=== PATIENT | male | born 1970 | race Caucasian/White ===

== ENCOUNTER 2021-09-22 18:30 | Inpatient (IN) | payer OTHER, MEDICAID ==
[~2021-09-22] VITALS: Ht 180.3 cm; Wt 113.4 kg
[~2021-09-22 18:30] MED LIST: GLIP5TAB13 PO; HTN MED
[2021-09-22 18:41] VITALS: BP 190/80
--- NOTE | 2021-09-22 18:49 | NUR ---
BIBA FROM STREET D/T ETOH. NO TRAUMA OR INJURY NOTED. HX DM, HTN. ON JAVA CORE DEVELOPER. IV ESTABLISHED STEAM FLATTENER BY EMS WITH 20G ON LEFT AC.
--- NOTE | 2021-09-22 18:50 | NUR ---
CONTACT INFO FOR FAMILY "BIRANNE": [phone]
--- NOTE | 2021-09-22 19:53 | NUR ---
PATIENT RESTING IN BED. RR APPEAR TO BE EVEN AND UNLABORED. DOESNT APPEAR TO BE IN DISTRESS. ALL NEEDS MET.
--- NOTE | 2021-09-22 20:22 | NUR ---
SPOKE TO BRIANNE PATIENTS , UPDATED ON PATIENTS CONDITION.
--- NOTE | 2021-09-22 20:30 | NUR ---
50/M DIANDRA FROM HOME C/C ALOC. FAMILY CALLED AMBULANCED S/P FINDING PATIENT IN ROOM. PER PREVIOUS NURSE REPORT UPON ARRIVAL PATIENT WAS AAOX1 , HAD SLOW RESPONSES TO NAME. AFTER CALLING AND UPDATING HER ON PATIENT STATUS, SHE STATED THAT PATIENT HAS A HISTORY OF ALCOHOL ABUSE AND SUSPECTED THAT HE STARTED USING AGAIN. FOUND ALCOHOL CANS IN ROOM. PER PATIENT IS CURRENTLY ON A TRANSPLANT LIST TO RECEIVE A LIVER. PATIENT IS LYING ON HIS RIGHT SIDE AND COVERED IN A BED SHEET. RR ARE EVEN AND UNLABORED. DOES NOT APPEAR TO BE IN DISTRESS. PLACED ON AUDIOMETRIC TECHNICIAN. BED IS LOW AND LOCKED. SIDE RAILS X2 FOR SAFETY. ALL NEEDS MET. PMHX HTN, DM, ETOH ABUSE, AND STROKE 2020 MEDS UNOBTAINABLE PER PATIENT, STATED HE IS NONCOMPLIANT. DI
--- NOTE | 2021-09-22 20:45 | NUR ---
PATIENT IS CURRENTLY AAOX3. PATIENT RQ MORE BLANKETS
[2021-09-22] MEDS ORDERED: NACL 0.9% 1,000 ML IV ONE ×2 (21:15→23:20)
--- NOTE | 2021-09-22 21:43 | NUR ---
PROVIDE PATIENT WITH URINAL. IS ATTEMPTING TO URINATE AT THIS TIME.
--- NOTE | 2021-09-22 21:49 | NUR ---
UNABLE TO PROVIDE URINE , WILL ATTEMPT TO GO LATER
--- NOTE | 2021-09-22 21:49 | NUR ---
LAB AT BEDSIDE
[2021-09-22 22:01] LABS: BASOPHILS # (AUTO) 0.1 K/uL (0.00-0.22); BASOPHILS % (AUTO) 2.1 % (0.0-2.0); EOSINOPHILS # (AUTO) 0.1 K/uL (0-0.4); HEMATOCRIT 32.9 % (36-52); HEMOGLOBIN 11.3 g/dL (12.0-18.0); LYMPHOCYTES # (AUTO) 0.6 K/uL (2.0-11.5); MEAN CORPUSCULAR HEMOGLOBIN 29 pg (27-31); MEAN CORPUSCULAR HGB CONC 34 g/dL (33-37); MONOCYTES # (AUTO) 0.2 K/uL (0.8-1.0); MONOCYTES % (AUTO) 3.3 % (1.7-9.3); NEUTROPHILS # (AUTO) 5.5 K/uL (1.8-7.7); NEUTROPHILS % (AUTO) 84.6 % (42.2-75.2); PLATELET COUNT (AUTO) 35 K/uL (140-450); RED BLOOD CELL COUNT(AUTO) 3.83 MIL/uL (4.20-6.10); WHITE BLOOD COUNT (AUTO) 6.5 K/uL (4.8-10.8)
--- NOTE | 2021-09-22 22:15 | NUR ---
[facility]
--- NOTE | 2021-09-22 22:30 | NUR ---
MD AWARE THAT PATIENT IS UNABLE TO URINATE AT THIS TIME. STATED THAT IT IS OKAY AT THIS TIME DUE TO THE BLOOD SHOWING ELEVATED ALCOHOL LEVELS. PATIENT STATED HE CANT GO AT THIS TIME. REFUSES TO BE STRAIGHT CATH. WILL ATTEMPT TO GO LATER. URINAL AT BEDSIDE
[2021-09-22 23:11] LABS: ANION GAP 18.4 (8-16); CARBON DIOXIDE 23.2 mmol/L (21-32); CHLORIDE 104 mmol/L (98-107); CREATININE 2.5 mg/dL (0.6-1.3); GFR ARICAN-AMERICAN 35 mL/min (>90); GLUCOSE 116 mg/dL (74-106); POTASSIUM 3.6 mmol/L (3.5-5.1); SODIUM SERUM 142 mmol/L (136-145); UREA NITROGEN, BLOOD 14 mg/dL (7-18)
[2021-09-22 23:20] LABS: ALBUMIN 3.5 g/dL (3.4-5.0); SALICYLATE < 2.8 mg/dL (2.8-20.0); TOTAL BILIRUBIN 2.9 mg/dL (0.0-1.0)
[2021-09-22] MEDS ORDERED: NACL 0.9% 3,000 ML IV ONE (23:20)
[2021-09-22 23:21] LABS: ACETAMINOPHEN < 0.5 ug/ml (10-30)
[2021-09-22 23:31] LABS: ASPARTATE AMINOTRANSFERASE 57 U/L (15-37)
[2021-09-22 23:55] LABS: CKMB RELATIVE INDEX 1.2 (0.0-2.5)
--- NOTE | 2021-09-23 00:40 | NUR ---
PATIENT STATED "I'M FEELING VERY ANXIOUS AND CANT STOP SHAKING". MD MADE AWARE.
[2021-09-23] MEDS ORDERED: HYDROcodone/APAP 5/325 MG 1 TAB TAB PO PRN (00:50)
[2021-09-23] MEDS ORDERED: NACL 0.9% 1,000 ML IV SCH (00:50)
[2021-09-23] MEDS ORDERED: MORPHINE SULFATE 4 MG/ML SYR IVP PRN (00:50)
[2021-09-23] MEDS ORDERED: LACTULOSE 20 GM/30 ML UDC PO ONE (02:20)
--- NOTE | 2021-09-23 02:30 | NUR ---
PATIENT TACHYCARDIC 160-200. AWARE
--- NOTE | 2021-09-23 02:44 | NUR ---
MD DEAL ORDERED STAT EKG ON PATIENT. STAT EKG SHOWED A FIB @200BPM , CARE OF PATIENT TRANSFERED TO KATHI EMMANUEL.
--- NOTE | 2021-09-23 02:45 | NUR ---
ASSUMED CARE FOR PATIENT. PATIENT TACHYCARDIC AT 160s, tremors, and has anxiety. CIWA level score of 23. ER MD aware and have orders received.
[2021-09-23] MEDS ORDERED: DILTIAZEM 125 MG in DEXTROSE 5% 100 ML IV ONE (02:50)
[2021-09-23] MEDS ORDERED: DILTIAZEM 25 MG/5 ML VIAL IVP ONE (02:50)
[2021-09-23] MEDS ORDERED: DIAZEPAM PFS 10 MG/2 ML SYR IVP ONE (02:50)
[2021-09-23 02:58] LABS: PROTHROMBIN TIME 12.5 secs (10.8-13.4)
[2021-09-23] MEDS ORDERED: DILTIAZEM 125 MG/25 ML VIAL IV ONE ×2 (03:16→03:17)
[2021-09-23 03:33] LABS: MAGNESIUM 1.8 mg/dL (1.8-2.4)
[2021-09-23 03:34] LABS: THYROID STIMULATING HORMONE 0.35 uIU/mL (0.34-3.74)
--- NOTE | 2021-09-23 04:31 | NUR ---
CONTACTED ADMISSION DOCTOR-- AWAITING FOR ANSWER AT THIS TIME.
--- NOTE | 2021-09-23 05:13 | NUR ---
PREVIOUS MAINFRAME APPLICATIONS DEVELOPER CONTACTED ADMITTING DOCTOR AT 03:19 NO ANSWER AT THIS TIME.
[2021-09-23] MEDS ORDERED: LORazepam 2 MG/ML VIAL IVP PRN (06:00)
--- NOTE | 2021-09-23 07:24 | NUR ---
Pt report given to Anirudh ARMENTA. Transfer of care at this time.
[2021-09-23] MEDS ORDERED: DOCUSATE SODIUM 100 MG GELCAP PO PRN (08:05)
[2021-09-23] MEDS ORDERED: guaiFENesin DM 200/20 MG-10 ML 10 ML UDC PO PRN (08:05)
[2021-09-23] MEDS ORDERED: MORPHINE SULFATE 2 MG/ML SYR IVP PRN (08:05)
[2021-09-23] MEDS ORDERED: DEXTROSE 50% 50 ML SYR IVP PRN (08:05)
[2021-09-23] MEDS ORDERED: ZOLPIDEM 5 MG TAB PO PRN (08:05)
[2021-09-23] MEDS ORDERED: POTASSIUM CHLORIDE 10 MEQ TABER PO PRN (08:05)
--- NOTE | 2021-09-23 08:26 | NUR ---
pt calm and resting. vss, on monitor, on cardizem drip, line patent and draining.
[2021-09-23] MEDS ORDERED: lisinopriL 5 MG TAB PO SCH (09:00)
[2021-09-23] MEDS ORDERED: ECOTRIN 81 MG TABEC PO SCH (09:00)
[2021-09-23] MEDS ORDERED: METOPROLOL 25 MG TAB PO SCH ×2 (09:00→11:24)
[2021-09-23] MEDS: FOLIC ACID 1 MG TAB PO SCH (09:42)
[2021-09-23] MEDS: THIAMINE 100 MG TAB PO SCH (09:43)
--- NOTE | 2021-09-23 10:14 | NUR ---
DR HILLS AT BEDSIDE. PER MD, DOWNGRADE PATIENT TO TELE AFTER CARDIZEM DRIP IS FINISHED.
[2021-09-23 10:44] LABS: BASOPHILS % (AUTO) 0.5 % (0.0-2.0); EOSINOPHILS # (AUTO) 0.1 K/uL (0-0.4); EOSINOPHILS % (AUTO) 0.9 % (0.0-4.0); HEMATOCRIT 32.1 % (36-52); LYMPHOCYTES # (AUTO) 0.6 K/uL (2.0-11.5); LYMPHOCYTES % (AUTO) 8.7 % (20.5-51.1); MEAN CORPUSCULAR HEMOGLOBIN 30 pg (27-31); MEAN CORPUSCULAR HGB CONC 34 g/dL (33-37); MEAN CORPUSCULAR VOLUME 86.6 fL (80-94); MONOCYTES # (AUTO) 0.3 K/uL (0.8-1.0); MONOCYTES % (AUTO) 4.5 % (1.7-9.3); NEUTROPHILS # (AUTO) 6.2 K/uL (1.8-7.7); NEUTROPHILS % (AUTO) 85.4 % (42.2-75.2); PLATELET COUNT (AUTO) 34 K/uL (140-450); RED BLOOD CELL COUNT(AUTO) 3.71 MIL/uL (4.20-6.10); RED CELL DISTRIBUTION WIDTH 17.3 % (11.6-13.7); WHITE BLOOD COUNT (AUTO) 7.3 K/uL (4.8-10.8)
[2021-09-23] MEDS: MULTIVITAMIN 1 TAB PO SCH (10:51)
[2021-09-23] MEDS ORDERED: METOPROLOL SUCCINATE 50 MG TABER PO ONE (11:15)
[2021-09-23] MEDS ORDERED: CRUSHER, PILL MC ONE (11:16)
--- NOTE | 2021-09-23 11:26 | NUR ---
PER DR CARROLL. PT CLEARED FOR DOWNGRADE TO TELE. RECEIVED VERBAL ORDER FOR METOPROLOL 12.5 MG PO PRIOR TO ADMISSION. US AT BEDSIDE.
--- NOTE | 2021-09-23 11:45 | NUR ---
Patient will be admitted to care of dr chaves. Admited to tele. Will go to room 111b. Belongings list completed. Report to adriana.
[2021-09-23] MEDS: BLOOD GLUCOSE MONITORING 1 DEV DEV FS SCH ×3 (12:05→21:43)
[2021-09-23 13:02] LABS: CARBON DIOXIDE 21.5 mmol/L (21-32); CREATININE 2.2 mg/dL (0.6-1.3); POTASSIUM 3.5 mmol/L (3.5-5.1)
[2021-09-23] MEDS: chlordiazePOXIDE 25 MG CAP PO SCH ×2 (13:09→21:43)
[2021-09-23 14:03] LABS: APPEARANCE,URINE SL CLOUDY (CLEAR); BILIRUBIN,URINE 1+ (NEGATIVE); BLOOD, URINE NEGATIVE (NEGATIVE); COLOR,URINE ORANGE (YELLOW); LEUKOCYTE ESTERASE ,URINE NEGATIVE (NEGATIVE); NITRITE, URINE NEGATIVE (NEGATIVE); UGLUCOSE NEGATIVE (NEGATIVE)
[2021-09-23 14:14] LABS: BARBITURATE, URINE NEGATIVE ng/ml (NEG <=200); BENZODIAZEPINE, URINE POSITIVE ng/mL (NEG <=200); CANNABINOID, URINE NEGATIVE ng/mL (NEG <=50); COCAINE, URINE NEGATIVE ng/mL (NEG <=300); OPIATE, URINE NEGATIVE ng/mL (NEG <=2000); PHENCYCLIDINE SCREEN,URINE NEGATIVE ng/mL (NEG <=25)
[2021-09-23 16:00] VITALS: BP 122/62
--- NOTE | 2021-09-23 16:30 | NUR ---
PATIENT HAS BEEN SCREENED AND CATEGORIZED MODERATE NUTRITION RISK. PATIENT WILL BE SEEN WITHIN 3-5 DAYS OF ADMISSION. / JAKE LORA RD
[2021-09-23] MEDS ORDERED: ATORVASTATIN 20 MG TAB PO SCH (17:00)
--- NOTE | 2021-09-23 18:39 | NUR ---
BEAUTY SCHOOL INSTRUCTOR WENT TO GIVE PT DINNER TRAY, PT WAS NOT RESPONDING, VITAL SIGNS CHECKED 171/70 HEART RATE 82, 96% IN RA, PT OPENED EYES WITH STERNAL RUB BUT WOULD NOT COMMUNICATE WITH US. BLOOD SUGAR 107. DR CARROLL AT BEDSIDE, WILL CONTINUE TO MONITOR.
--- NOTE | 2021-09-23 19:06 | NUR ---
REPORT ENDORSED TO KATHI DELGADO
--- NOTE | 2021-09-23 19:10 | NUR ---
RECEIVED REPORT FROM AM SHIFT NURSE FOR CONTINUITY OF CARE.PT AWAKE AND ORIENTED TO NAME AND PLACE. ON ROOM AIR, BREATHING EQUAL AND UNLABORED.IV ON LAC G20, L HAND G22, SL.DENIES PAIN. REPORTS WEAKNESS. ALL PRECAUTIONS IN PLACE. CALL LIGHT WITHIN REACH. WILL CONTINUE TO MONITOR.
[2021-09-23] MEDS ORDERED: ACETAMINOPHEN 325 MG TAB PO PRN (19:50)
[2021-09-23 20:00] VITALS: BP 117/58
--- NOTE | 2021-09-23 21:00 | NUR ---
SCHEDULED MEDICATIONS GIVEN.BLOOD SUGAR WAS 111, NO INULIN COVERAGE NEEDED. PT TOLERATED WELL. WILL CONTINUE TO MONITOR.
[2021-09-23] MEDS: METOPROLOL 25 MG TAB PO SCH (21:43)
--- NOTE | 2021-09-23 23:00 | NUR ---
PT ASKED FOR ICE CHIPS AND PUDDING. NO DISTRESS NOTED.WILL CONTINUE TO MONITOR.
[2021-09-24] VITALS: BP 138/69
--- NOTE | 2021-09-24 02:15 | NUR ---
PT CLEANED AND CHANGED. PT TOLERATED WELL. WILL CONTINUE TO MONITOR.
[2021-09-24 04:00] VITALS: BP 123/70
[2021-09-24] MEDS: chlordiazePOXIDE 25 MG CAP PO SCH ×3 (05:00→20:51)
--- NOTE | 2021-09-24 05:30 | NUR ---
SCHEDULED MEDICATIONS GIVEN. PT TOLERATED WELL. WILL CONTINUE TO MONITOR.
--- NOTE | 2021-09-24 06:30 | NUR ---
BLOOD SUGAR WAS 110, NO INULIN COVERAGE NEEDED.
[2021-09-24] MEDS: BLOOD GLUCOSE MONITORING 1 DEV DEV FS SCH ×4 (06:44→20:37)
[2021-09-24 06:52] LABS: BASOPHILS % (AUTO) 0.7 % (0.0-2.0); EOSINOPHILS # (AUTO) 0.2 K/uL (0-0.4); HEMATOCRIT 29.3 % (36-52); HEMOGLOBIN 10.1 g/dL (12.0-18.0); LYMPHOCYTES # (AUTO) 0.5 K/uL (2.0-11.5); LYMPHOCYTES % (AUTO) 10.3 % (20.5-51.1); MEAN CORPUSCULAR HEMOGLOBIN 29 pg (27-31); MEAN CORPUSCULAR HGB CONC 35 g/dL (33-37); MEAN CORPUSCULAR VOLUME 85.3 fL (80-94); MONOCYTES # (AUTO) 0.3 K/uL (0.8-1.0); MONOCYTES % (AUTO) 7.2 % (1.7-9.3); NEUTROPHILS # (AUTO) 3.6 K/uL (1.8-7.7); NEUTROPHILS % (AUTO) 76.8 % (42.2-75.2); PLATELET COUNT (AUTO) 25 K/uL (140-450); RED BLOOD CELL COUNT(AUTO) 3.44 MIL/uL (4.20-6.10); RED CELL DISTRIBUTION WIDTH 17.1 % (11.6-13.7); WHITE BLOOD COUNT (AUTO) 4.7 K/uL (4.8-10.8)
[2021-09-24 06:58] LABS: ANION GAP 12.5 (8-16); CARBON DIOXIDE 23.7 mmol/L (21-32); CREATININE 2.3 mg/dL (0.6-1.3); POTASSIUM 3.2 mmol/L (3.5-5.1)
--- NOTE | 2021-09-24 07:16 | NUR ---
PT IS STABLE. NO ACUTE EVENTS THROUGHOUT THE NIGHT. ALL NEEDS MET. ALL PRECAUTIONS IN PLACE. CALL LIGHT WITHIN REACH. WILL ENDORSE TO AM SHIFT NURSE.
--- NOTE | 2021-09-24 07:30 | NUR ---
RECEIVED REPORT FROM HOTEL RECEPTIONIST NURSE FOR CONTINUITY OF CARE. PT AWAKE AND ORIENTED TO NAME AND PLACE. ON ROOM AIR, BREATHING EQUAL AND UNLABORED. IV ON L HAND G22, SL. DENIES PAIN. REPORTS WEAKNESS. PLAN OF CARE DISCUSSED. ALL PRECAUTIONS IN PLACE. CALL LIGHT WITHIN REACH. WILL CONTINUE TO MONITOR.
[2021-09-24 08:00] VITALS: BP 136/67
--- NOTE | 2021-09-24 08:40 | NUR ---
DC PLANNING: THE PATIENT PRESENTED WITH C/O ALOC SECONDARY TO ETOH INTAKE. B/P 190/80, H/O DM AND HTN. TOX SCREEN POSITIVE FOR ETOH AND BENZODIAZEPINES, HR 120, ORDERS FOR CARDIOLOGY CONSULT. PATIENT STARTED ON LOPRESSOR, LIBRIUM AND IVF'S. CM SPOKE WITH THE PATIENT AT BEDSIDE AND CONFIRMED HIS ADDRESS AND PHONE NUMBER. HE LIVES IN A SINGLE STORY HOUSE WITH HIS AND TWO ADULT CHILDREN. HE IS ON DISABILITY SECONDARY TO A WORK ACCIDENT EIGHT YEARS AGO, AND IS NORMALLY INDEPENDENTLY ACTIVE AND DOES NOT NEED ASSISTANCE. HE HAS A H/O ETOH ABUSE SINCE THE AGE OF 16 BUT HAD BEEN SOBER FOR THE LAST 3-4 YEARS. HE STARTED DRINKING AGAIN DURING September WEEKEND, IS ALSO TAKING MANDATORY ALCOHOL CESSATION CLASSES SECONDARY TO A DRIVING VIOLATION. HE STATES HE HAS ATTENDED AA MEETINGS IN THE PAST BUT HAS NEVER HAD A SPONSOR. HE STATES HE IS MOTIVATED TO WORK ON HIS SOBRIETY AGAIN SECONDARY TO HIS 'S UNHAPPINESS AND HIS HOSPITALIZATION. ANTICIPATE THAT HE WILL DC HOME WHEN CLINICALLY STABLE, CM WILL FOLLOW FOR NEEDS.
[2021-09-24] MEDS: FOLIC ACID 1 MG TAB PO SCH (09:08)
[2021-09-24] MEDS: MULTIVITAMIN 1 TAB PO SCH (09:08)
[2021-09-24] MEDS: METOPROLOL 25 MG TAB PO SCH ×2 (09:08→20:50)
[2021-09-24] MEDS: THIAMINE 100 MG TAB PO SCH (09:09)
--- NOTE | 2021-09-24 09:15 | NUR ---
ALL SCHEDULED MEDS GIVEN. PT IS STABLE. NO DISTRESS NOTED. WILL CONTINUE TO MONITOR.
[2021-09-24 12:00] VITALS: BP 157/61
[2021-09-24] MEDS: INSULIN LISPRO SLIDING SCALE 100 UNITS/ML VIAL SUBQ PRN ×2 (12:31→20:50)
--- NOTE | 2021-09-24 12:31 | NUR ---
BLOOD GLUCOSE CHECK WAS 154. ADMINISTERED 2 UNITS OF INSULIN SQ PER MD ORDERED.
--- NOTE | 2021-09-24 14:10 | NUR ---
ALL SCHEDULED MEDS GIVEN. PT IS STABLE. NO DISTRESS NOTED. WILL CONTINUE TO MONITOR.
[2021-09-24 16:00] VITALS: BP 123/65
[2021-09-24] MEDS: ACETAMINOPHEN 325 MG TAB PO PRN (16:00)
--- NOTE | 2021-09-24 16:00 | NUR ---
PATIENT COMPLAINED OF 3/10 HEADACHE. ADMINISTERED TYLENOL PRN PER MD ORDERED.
--- NOTE | 2021-09-24 17:17 | NUR ---
P.T. NOTES P.T. EVAL COMPLETED; REFER TO EVAL FOR DETAILS.
--- NOTE | 2021-09-24 19:25 | NUR ---
ENDORSED TO HIGH SCHOOL DIRECTOR NURSE FOR CONTINUITY OF CARE. PT IS STABLE.
--- NOTE | 2021-09-24 19:30 | NUR ---
RECEIVED REPORT FROM DAY SHIFT RN FOR CONTINUITY OF CARE. PT IS AWAKE AND ALERT. PT GARCIA SLEFT HAND 20 GAUGE SALINE LOCK. PT FINISHED FOOD BY BEDSIDE. PT DENIES ANY PAIN AND HAS NO COMPLAINS. PLAN OF CARE DISCUSSED. CALL LIGHT WITHIN REACH. WILL CONTINUE TO MONITOR THE PT.
[2021-09-24 20:00] VITALS: BP 122/70
--- NOTE | 2021-09-24 21:00 | NUR ---
GAVE 2100 MEDICATIONS. PATIENT WAS SLEEPING AND WAS WOKEN UP TO TAKE MEDICATION. PATIENT SEEMED GROGGY AND ASKING QUESTIONS TO WHO I WAS AND WHO SENT ME HERE. I RE-INTRODUCED MYSELF TO THE PATIENT HIS NURSE AND ASKED WHAT HE MEANT BY WHO SENT ME HERE. HE ASKED IF I CAME HERE BY AMBULANCE, AND I SAID NO. AT THIS POINT I ASKED PATIENT IF HE KNEW WHERE HE WAS. HE STATED [place] THE [facility]. HE ALSO WAS ABLE TO PROVIDE HIS NAME AND DATE OF ; WELL THE MONTH, BUT WAS NOT SURE TO WHAT DAY IT WAS. HE WAS GIVEN HIS MEDICATION, WHICH HE TOLERATED WELL. HIS BS WAS 157, AND 2 UNITS OF HUMALOG WAS GIVEN. PATIENT SEEMED TO BE LESS GROGGY AFTER A FEW MINUTES AND STATED HE WASN'T ABLE TO GET ANY SLEEP THE PREVIOUS NIGHT, SO HE WAS REALLY TIRED. INFORMED PATIENT TO TRY AND REST NOW. HE ASKED WHEN I WAS COMING BACK, HE WAS INFORMED THAT HE DID NOT HAVE ANYMORE MEDICATIONS UNTIL 0500, BUT I WOULD BE CHECKING IN ON HIM THROUGHOUT THE NIGHT. HE SAID OKAY AND LAID DOWN TO GO BACK TO SLEEP. PATIENT SEEMED TO BE A&O X3-4, BEING ONLY UNAWARE OF THE DAY, BUT WAS AWARE OF THE MONTH. NO IVF RUNNING AT THIS TIME. BED IS IN LOWEST POSITION. WILL CONTINUE TO LOOK IN ON PATIENT.
--- NOTE | 2021-09-25 02:30 | NUR ---
PATIENT EMERGED FROM HIS ROOM TO THE NURSING STATION. PATIENT INQUIRED IF HE COULD GO HOME TO SHAVE AND SHOWER AND THEN RETURN FOR HIS MEDICATIONS. I ASSISTED PATIENT BACK TO ROOM AND ASKED WHY HE WANTED TO GO HOME. PATIENT DID NOT WANT TO LEAVE FACILITY PERMANENTLY JUST GO HOME TO SHOWER. PATIENT WAS INFORMED THAT HE LEFT, HE WOULD BE LEAVING AMA AND WOULD HAVE TO BE READMITTED IF HE NEEDED TO COME BACK TO HOSPITAL. HE WAS THEN INFORMED THAT IF HE JUST WANTED A SHOWER, SHOWERS WERE AVAILABLE ACROSS THE [place] THAT HE COULD USE. HE WAS ALSO INFORMED THAT AFTER THE SHOWER HE SHOULD TRY AND REST A LITTLE MORE BECAUSE IT WAS 0215 IN THE MORNING. HE STATED HE THOUGHT IT WAS 10:00 IN THE MORNING. PATIENT WAS ABLE TO AMBULATE INDEPENDENTLY TO SHOWER. PATIENT ALSO ASKED FOR A NEW PAIR OF SOCKS; WELL NEW GOWN AND NEW BEDDING (FOR WHICH HE HAD ALREADY TOSSED IN THE LINEN BIN). AFTER GIVING THE PATIENT A NEW GOWN AND SETTING HIM UP IN THE SHOWER, THE BED WAS REMADE. WILL CONTINUE TO LOOK IN ON PATIENT.
--- NOTE | 2021-09-25 03:20 | NUR ---
PATIENT COMPLETED SHOWER AND WAS ASSISTED BACK TO HIS ROOM (ABLE TO AMBULATE INDEPENDENTLY). PATIENT ASKED FOR SOME JUICE AND JELLO. CRANBERRY JUICE AND STRAWBERRY JELLO WAS PROVIDED TO PATIENT. PATIENT WAS SITTING UP IN BED UPON RETURN TO THE ROOM. PATIENT WAS THANKFUL FOR FOOD AND SAID HE WOULD TRY TO GO BACK TO SLEEP AFTER HIS EATING. WILL CONTINUE TO OBSERVE PATIENT.
[2021-09-25 04:00] VITALS: BP 131/75
[2021-09-25] MEDS: chlordiazePOXIDE 25 MG CAP PO SCH ×3 (04:32→21:40)
--- NOTE | 2021-09-25 04:35 | NUR ---
PATIENT WAS GIVEN BY MOUTH MEDICATION. PATIENT TOLERATED WELL. PATIENT WAS SLEEPING SUPINE AND WAS WOKEN UP FOR VITALS AND MEDICATION. VITALS: BP 131/75, HR 85, O2 98, RESP 18, TEMP 98.6. PATIENT WAS NOT RUNNING ANY IV FLUIDS. AFTER ADMINISTRATION, PATIENT STATED HE WAS GOING TO SLEEP FOR A LITTLE WHILE AND THEN GET UP. HE WAS INFORMED THAT HE COULD GO BACK TO SLEEP AND THAT SOMEONE WOULD BE IN AROUND 0700 FOR A BLOOD GLUCOSE CHECK. CALL LIGHT WAS IN REACH, BED WAS IN LOWEST POSITION AND WHEELS WERE LOCKED. BREATHING WAS NORMAL WITH SYMMETRICAL RISE AND FALL OF CHEST. WILL CONTINUE TO CHECK IN ON THE PATIENT.
[2021-09-25 07:01] LABS: HEMATOCRIT 29.1 % (36-52); HEMOGLOBIN 10.1 g/dL (12.0-18.0); MEAN CORPUSCULAR HEMOGLOBIN 30 pg (27-31); MEAN CORPUSCULAR HGB CONC 35 g/dL (33-37); MEAN CORPUSCULAR VOLUME 86.4 fL (80-94); RED BLOOD CELL COUNT(AUTO) 3.37 MIL/uL (4.20-6.10); RED CELL DISTRIBUTION WIDTH 17.4 % (11.6-13.7)
[2021-09-25 07:12] LABS: PLATELET COUNT (AUTO) 25 K/uL (140-450)
--- NOTE | 2021-09-25 07:30 | NUR ---
RECEIVED REPORT FROM OPTICAL LABORATORY TECHNICIAN NURSE FOR CONTINUITY OF CARE. PT AWAKE AND ORIENTED TO NAME AND PLACE. ON ROOM AIR, BREATHING EQUAL AND UNLABORED. IV ON L HAND G22, SL. DENIES PAIN. REPORTS WEAKNESS. PLAN OF CARE DISCUSSED. ALL PRECAUTIONS IN PLACE. CALL LIGHT WITHIN REACH. WILL CONTINUE TO MONITOR.
[2021-09-25 07:32] LABS: CARBON DIOXIDE 22.6 mmol/L (21-32); CREATININE 1.9 mg/dL (0.6-1.3); POTASSIUM 3.6 mmol/L (3.5-5.1)
--- NOTE | 2021-09-25 07:33 | NUR ---
ENDORSED PATIENT FOR CONTINUITY OF CARE TO MORNING NURSE VERO. PATIENT IS STABLE.
[2021-09-25 07:53] LABS: BASOPHILS % (MANUAL) 0 % (0-2); EOSINOPHILS % (MANUAL) 2 % (0-4); LYMPHOCYTES % (MANUAL) 8 % (20-46); MONOCYTES % (MANUAL) 7 % (5-12)
[2021-09-25 07:55] LABS: BUFFY COAT SMEAR PREP N
[2021-09-25 08:00] VITALS: BP 118/67
[2021-09-25] MEDS: BLOOD GLUCOSE MONITORING 1 DEV DEV FS SCH ×4 (08:41→21:47)
[2021-09-25] MEDS: FOLIC ACID 1 MG TAB PO SCH (08:41)
[2021-09-25] MEDS: THIAMINE 100 MG TAB PO SCH (08:42)
[2021-09-25] MEDS: MULTIVITAMIN 1 TAB PO SCH (08:42)
[2021-09-25] MEDS: METOPROLOL 25 MG TAB PO SCH ×2 (08:42→21:40)
--- NOTE | 2021-09-25 09:30 | NUR ---
INSERTED NEW 20 G IV ON RFA. SALINE FLUSHED. INTACT AND PATENT.
[2021-09-25] MEDS: NACL 0.9% 1,000 ML IV SCH ×2 (10:12→20:00)
--- NOTE | 2021-09-25 12:30 | NUR ---
BS CHECK WAS 130. NO INSULIN COVERAGE NEEDED.
[2021-09-25 16:00] VITALS: BP 118/70
--- NOTE | 2021-09-25 17:30 | NUR ---
BS CHECK WAS 119. NO INSULIN COVERAGE NEEDED
--- NOTE | 2021-09-25 19:35 | NUR ---
ENDORSED TO VENEER SUPERVISOR NURSE FOR CONTINUITY OF CARE. PT IS STABLE.
[2021-09-25 20:01] VITALS: BP 123/61
[2021-09-25] MEDS: INSULIN LISPRO SLIDING SCALE 100 UNITS/ML VIAL SUBQ PRN (21:49)
[2021-09-26] MEDS: chlordiazePOXIDE 25 MG CAP PO SCH ×3 (05:12→20:50)
[2021-09-26] MEDS: NACL 0.9% 1,000 ML IV SCH ×3 (05:30→22:20)
[2021-09-26 07:19] LABS: ANION GAP 12.6 (8-16); BASOPHILS % (AUTO) 0.6 % (0.0-2.0); CARBON DIOXIDE 21.2 mmol/L (21-32); CREATININE 1.7 mg/dL (0.6-1.3); EOSINOPHILS # (AUTO) 0.2 K/uL (0-0.4); EOSINOPHILS % (AUTO) 5.2 % (0.0-4.0); HEMATOCRIT 31.5 % (36-52); HEMOGLOBIN 10.8 g/dL (12.0-18.0); LYMPHOCYTES # (AUTO) 0.5 K/uL (2.0-11.5); MEAN CORPUSCULAR HEMOGLOBIN 30 pg (27-31); MEAN CORPUSCULAR HGB CONC 34 g/dL (33-37); MEAN CORPUSCULAR VOLUME 86.8 fL (80-94); MONOCYTES # (AUTO) 0.6 K/uL (0.8-1.0); NEUTROPHILS # (AUTO) 2.8 K/uL (1.8-7.7); NEUTROPHILS % (AUTO) 68.2 % (42.2-75.2); PLATELET COUNT (AUTO) 58 K/uL (140-450); POTASSIUM 3.8 mmol/L (3.5-5.1); RED BLOOD CELL COUNT(AUTO) 3.63 MIL/uL (4.20-6.10); RED CELL DISTRIBUTION WIDTH 17.3 % (11.6-13.7); WHITE BLOOD COUNT (AUTO) 4.1 K/uL (4.8-10.8)
--- NOTE | 2021-09-26 07:42 | NUR ---
RECEIVED REPORT FROM TEST PREPARATION TUTOR NURSE FOR CONTINUITY OF CARE. PT IS SLEEPING, AROUSABLE BY VERBAL STIMULI. BREATHING EVEN AND UNLABORED ON ROOM AIR. NO DISTRESS NOTED. PT IS CONTINENT TO VOID AND BM W/ URINAL AT BEDSIDE. SKIN IS WARM AND DRY TO TOUCH. IV SITE AT RFA 20G, INFUSING NS AT 100ML/HR. CALL LIGHT WITHIN REACH. SAFETY PRECAUTIONS IN PLACE. WILL CONTINUE TO MONITOR.
[2021-09-26] MEDS: BLOOD GLUCOSE MONITORING 1 DEV DEV FS SCH ×4 (07:57→20:38)
[2021-09-26 08:00] VITALS: BP 142/69
--- NOTE | 2021-09-26 08:00 | NUR ---
Patient's Plan of Care was discussed and reviewed with BUSINESS EMPLOYMENT SPECIALIST: ALEXIA. WILL CONTINUE WITH CURRENT POC.
[2021-09-26] MEDS: ACETAMINOPHEN 325 MG TAB PO PRN (09:44)
[2021-09-26] MEDS: THIAMINE 100 MG TAB PO SCH (09:44)
[2021-09-26] MEDS: MULTIVITAMIN 1 TAB PO SCH (09:44)
[2021-09-26] MEDS: FOLIC ACID 1 MG TAB PO SCH (09:45)
[2021-09-26] MEDS: METOPROLOL 25 MG TAB PO SCH ×2 (09:45→20:50)
--- NOTE | 2021-09-26 09:50 | NUR ---
ADMINISTERED SCHEDULED MORNING MEDS. TEMP 101.7. ADMINISTERED PRN MED FOR FEVER. PT TEACHING ABOUT MEDS GIVEN. PT VERBALIZED UNDERSTANDING. PT A&O4, ABLE TO COMMUNICATE NEEDS. CALL LIGHT WITHIN REACH. SAFETY PRECAUTIONS IN PLACE. WILL CONTINUE TO MONITOR.
--- NOTE | 2021-09-26 10:56 | NUR ---
(09/26/21) RD INITIAL ASSESSMENT COMPLETED PLEASE REFER TO NUTRITION ASSESSMENT UNDER CARE ACTIVITY FOR ESTIMATED NUTRITIONAL NEEDS. RD RECOMMENDATIONS: 1. CONTINUE CCHO 45 GM DIET AND ENCOURAGE >50% INTAKES TOLERATED 2. CONTINUE GLUCERNA BID WITH BREAKFAST AND DINNER AND ENCOURAGE >50% INTAKES TOLERATED 3. CONSULT RDN PRN. 4. RD WILL F/U 3-5 DAYS; MODERATE RISK. JUANITA GAMINO MS, RDN
--- NOTE | 2021-09-26 12:00 | NUR ---
BLOOD GLUCOSE CHECK DONE. BS 198. SLIDING SCALE INSULIN GIVEN. PT ACCIDENTALLY REMOVED HIS IV LINE WHEN HE WENT TO THE REST ROOM FOR BM. NEW IV LINE INSERTED BY RN. IV SITE NOW RFA 22G.
[2021-09-26] MEDS: INSULIN LISPRO SLIDING SCALE 100 UNITS/ML VIAL SUBQ PRN ×2 (12:08→20:52)
--- NOTE | 2021-09-26 12:30 | NUR ---
PT IN BED, EATING LUNCH. NO DISTRESS NOTED. BREATHING EVEN AND UNLABORED. PT WITH FAMILY MEMBER AT BEDSIDE. CALL LIGHT WITHIN REACH. SAFETY PRECAUTIONS IN PLACE. WILL CONTINUE TO MONITOR. Addendum: 09/26/21 at 1517 by Daphne Mcfadden LVN WRONG PT
--- NOTE | 2021-09-26 15:05 | NUR ---
DC PT HOME. DISCUSSED DC PAPERS TO PT. PT VERBALIZED UNDERSTANDING. REMOVED IV CATHETERS INTACT. REMOVED ID WRIST BAND. ALL PT BELONGINGS INCLUDING HOME MEDS TAKEN UPON DC. PT WALKED OUT BY TERRY TO THE [facility]. PT IS STABLE. Addendum: 09/26/21 at 1517 by Daphne Mcfadden LVN WRONG PT
[2021-09-26 16:00] VITALS: BP 111/70
--- NOTE | 2021-09-26 16:32 | NUR ---
BLOOD GLUCOSE CHECK DONE. BS 128. NO SLIDING SCALE INSULIN NEEDED.
--- NOTE | 2021-09-26 18:08 | NUR ---
DID ROUNDS. PT SLEEPING IN BED. CHEST RISING AND FALLING WITHOUT ACUTE DISTRESS. CALL LIGHT WITHIN REACH. SAFETY PRECAUTIONS IN PLACE.
--- NOTE | 2021-09-26 19:41 | NUR ---
ENDORSED PT TO MUSHROOM GROWER NURSE FOR CONTINUITY OF CARE. ALL NEEDS MET THROUGHOUT SHIFT. PT IS STABLE.
--- NOTE | 2021-09-26 19:54 | NUR ---
GET THE REPORT FROM MORNING NURSE ALEXIA , PATIENT IS SITTING ON BED, PATIENT IS ALERT ORIENTED X4 WITH FORGET FULLNESS , CALL LIGHT IS WITHIN THE REACH, WILL CONTINUE TO MONITOR PATIENT.
[2021-09-26 20:34] VITALS: BP 120/61
--- NOTE | 2021-09-26 20:52 | NUR ---
PATIENT IS LYING ON BED, NO ANY COMPLAIN OF PAIN OR SHORTNESS OF BREATH AT THIS TIME,VITAL SIGN IS WITHIN THE NORMAL RANGE, ALL SCHEDULE MEDICATION IS GIVEN PER DOCTOR ORDER, CALL LIGHT IS WITHIN THE REACH, WILL CONTINUE TO MONITOR PATIENT.
--- NOTE | 2021-09-26 20:54 | NUR ---
PATIENT BLOOD SUGAR IS 164, 2 UNIT INSULIN IS GIVEN PER DOCTOR ORDER, CALL LIGHT IS WITHIN THE REACH, WILL CONTINUE TO MONITOR PATIENT.
--- NOTE | 2021-09-27 00:22 | NUR ---
PATIENT IS LYING ON BED, NO ANY COMPLAIN OF PAIN OR SHORTNESS OF BREATH AT THIS TIME.CALL LIGHT IS WITHIN THE REACH, WILL CONTINUE TO MONITOR PATIENT.
[2021-09-27 04:00] VITALS: BP 118/56
[2021-09-27] MEDS: ACETAMINOPHEN 325 MG TAB PO PRN (04:05)
[2021-09-27] MEDS: chlordiazePOXIDE 25 MG CAP PO SCH ×2 (04:06→13:13)
--- NOTE | 2021-09-27 04:14 | NUR ---
PATIENT HAS FEVER 100.4, TYLENOL 650 MG PO PRN IS GIVEN PER DOCTOR ORDER, CALL LIGHT IS WITHIN THE REACH, WILL CONTINUE TO MONITOR PATIENT.
--- NOTE | 2021-09-27 06:32 | NUR ---
PATIENT BLOOD SUGAR IS 127, NO INSULIN COVERAGE NEEDED, WILL CONTINUE TO MONITOR PATIENT.
[2021-09-27] MEDS: BLOOD GLUCOSE MONITORING 1 DEV DEV FS SCH ×2 (06:40→11:58)
--- NOTE | 2021-09-27 07:31 | NUR ---
GAVE THE REPORT TO MORNING NURSE FOR CONTINUOS OF CARE , PATIENT IS STABLE.
[2021-09-27 07:54] LABS: HEMATOCRIT 27.9 % (36-52); HEMOGLOBIN 9.6 g/dL (12.0-18.0); MEAN CORPUSCULAR HEMOGLOBIN 30 pg (27-31); MEAN CORPUSCULAR HGB CONC 34 g/dL (33-37); MEAN CORPUSCULAR VOLUME 86.7 fL (80-94); PLATELET COUNT (AUTO) 34 K/uL (140-450); RED BLOOD CELL COUNT(AUTO) 3.22 MIL/uL (4.20-6.10); WHITE BLOOD COUNT (AUTO) 2.9 K/uL (4.8-10.8)
--- NOTE | 2021-09-27 07:54 | NUR ---
RECEIVE ENDORSEMENT FROM PM SHIFT NURSE THAT PATIENT REST IN BED, PIV R.FOREARM 22G IV NS@100ML/HR INFUSING. WILL CONTINUE TO MONITOR
[2021-09-27 08:00] VITALS: BP 142/69
[2021-09-27 08:09] LABS: ANION GAP 11.8 (8-16); CARBON DIOXIDE 21.9 mmol/L (21-32); CREATININE 1.5 mg/dL (0.6-1.3); POTASSIUM 3.7 mmol/L (3.5-5.1)
[2021-09-27 09:09] LABS: BASOPHILS % (MANUAL) 0 % (0-2); EOSINOPHILS % (MANUAL) 6 % (0-4); LYMPHOCYTES % (MANUAL) 18 % (20-46); MONOCYTES % (MANUAL) 8 % (5-12)
[2021-09-27] MEDS: MULTIVITAMIN 1 TAB PO SCH (10:07)
[2021-09-27] MEDS: THIAMINE 100 MG TAB PO SCH (10:08)
[2021-09-27] MEDS: FOLIC ACID 1 MG TAB PO SCH (10:08)
[2021-09-27] MEDS: METOPROLOL 25 MG TAB PO SCH (10:08)
[2021-09-27] MEDS ORDERED: METO25TA PO (11:33)
[2021-09-27] MEDS: NACL 0.9% 1,000 ML IV SCH (11:58)
[2021-09-27] MEDS: INSULIN LISPRO SLIDING SCALE 100 UNITS/ML VIAL SUBQ PRN (12:06)
[2021-09-27 13:35] VITALS: BP 142/69
--- NOTE | 2021-09-27 14:51 | NUR ---
DISCHARGE PATIENT IN STABLE CONDITION, D/C EDUCATION DONE, D/C CONSENT SIGNED, IV ACCESS AND ARM BAND REMOVED. PATIENT STILL IN ROOM WAITING FOR CLOTHES, SHOES, AND COME TO PICK HIM UP. Addendum: 09/27/21 at 1524 by Adriana Avendaño RN PATIENT'S SIGNIFICANT OTHER IS HERE OUTSIDE OF HOSPITAL. PATIENT STABLE, AND WHEELED OUT FROM [facility].
== END 2021-09-27 15:24 | disposition home or self-care (01) | DRG 70 ==
LOC: MED 18:30 → MTU 09-23 00:56 → MIC 09-23 08:50 → MTU 09-23 09:26
PROVIDERS: ADMIT Hospitalist; ATTEND Hospitalist
DX: G93.41 Metabolic encephalopathy (principal); N17.0 Acute kidney failure with tubular necrosis; M62.82 Rhabdomyolysis; E11.9 Type 2 diabetes mellitus without complications; I10 Essential (primary) hypertension; D69.6 Thrombocytopenia, unspecified; E86.0 Dehydration; D64.9 Anemia, unspecified; E80.6 Other disorders of bilirubin metabolism; I48.0 Paroxysmal atrial fibrillation; K70.30 Alcoholic cirrhosis of liver without ascites; Z20.822 Contact with and (suspected) exposure to COVID-19; Z79.01 Long term (current) use of anticoagulants
CPT/HCPCS: 36415; 70450; 71045; 76770; 80048; 80053; 80305; 81003; 82140; 82550; 82553; 82948; 83735; 84443; 84484; 85025; 85610; 87081; 93005; 96361; 96374; 96375; 97163-GP; 99291; G0480; G0482; J1815; J3360; J3490; J7030; J7060; Q0092

== ENCOUNTER 2022-06-27 09:27 | Inpatient (IN) | payer OTHER, MEDICAID ==
[2022-06-27] VITALS (10 sets, daily range): BP systolic 110–130; BP diastolic 39–77
[~2022-06-27] VITALS: Ht 172.7 cm; Wt 112.5 kg
[~2022-06-27 09:27] MED LIST changes: -HTN MED; +METO25TA PO
--- NOTE | 2022-06-27 09:30 | NUR ---
DIANDRA ALS TO ER BED 9
[2022-06-27] MEDS ORDERED: NACL 0.9% 1,000 ML IV ONE (10:10)
[2022-06-27] MEDS ORDERED: DILTIAZEM 25 MG/5 ML VIAL IVP ONE ×2 (10:25→11:20)
[2022-06-27 10:53] LABS: BASOPHILS # (AUTO) 0.1 K/uL (0.00-0.22); BASOPHILS % (AUTO) 0.8 % (0.0-2.0); HEMOGLOBIN 11.6 g/dL (12.0-18.0); LYMPHOCYTES # (AUTO) 0.5 K/uL (2.0-11.5); LYMPHOCYTES % (AUTO) 4.7 % (20.5-51.1); MEAN CORPUSCULAR HEMOGLOBIN 31 pg (27-31); MEAN CORPUSCULAR HGB CONC 35 g/dL (33-37); MEAN CORPUSCULAR VOLUME 86.6 fL (80-94); MONOCYTES # (AUTO) 0.3 K/uL (0.8-1.0); NEUTROPHILS # (AUTO) 8.8 K/uL (1.8-7.7); NEUTROPHILS % (AUTO) 91.5 % (42.2-75.2); PLATELET COUNT (AUTO) 82 K/uL (140-450); RED BLOOD CELL COUNT(AUTO) 3.81 MIL/uL (4.20-6.10); RED CELL DISTRIBUTION WIDTH 16.3 % (11.6-13.7); WHITE BLOOD COUNT (AUTO) 9.6 K/uL (4.8-10.8)
[2022-06-27 11:41] LABS: ALBUMIN 3.2 g/dL (3.4-5.0); ANION GAP 18.2 (8-16); ASPARTATE AMINOTRANSFERASE 85 U/L (15-37); CARBON DIOXIDE 22.8 mmol/L (21-32); CHLORIDE 109 mmol/L (98-107); CREATININE 3.3 mg/dL (0.6-1.3); GFR ARICAN-AMERICAN 25 mL/min (>90); GLUCOSE 189 mg/dL (74-106); MAGNESIUM 1.9 mg/dL (1.8-2.4); PHOSPHORUS 1.8 mg/dL (2.5-4.9); SODIUM SERUM 146 mmol/L (136-145); TOTAL BILIRUBIN 3.7 mg/dL (0.0-1.0); UREA NITROGEN, BLOOD 26 mg/dL (7-18)
[2022-06-27] MEDS ORDERED: DILTIAZEM 125 MG in DEXTROSE 5% 100 ML IV ONE (11:50)
[2022-06-27] MEDS ORDERED: SODIUM PHOSPHATE 15 MMOLE in NACL 0.9% 250 ML IV ONE (11:50)
--- NOTE | 2022-06-27 13:16 | NUR ---
DM SWABBED AT THIS TIME
[2022-06-27] MEDS ORDERED: POTASSIUM CHLORIDE 10 MEQ TABER PO PRN (13:45)
[2022-06-27] MEDS ORDERED: MAG SULF 2000 MG/WATER PREMIX 50 ML IV PRN (13:45)
[2022-06-27] MEDS ORDERED: DOCUSATE SODIUM 100 MG GELCAP PO PRN (13:45)
[2022-06-27] MEDS ORDERED: ALBUTEROL 0.083% 2.5 MG/3 ML NEBU INH PRN (13:45)
[2022-06-27] MEDS ORDERED: ONDANSETRON 4 MG/2 ML VIAL IVP PRN (13:45)
[2022-06-27] MEDS ORDERED: ACETAMINOPHEN 325 MG TAB PO PRN (13:45)
[2022-06-27] MEDS ORDERED: ZOLPIDEM 10 MG TAB PO PRN (13:45)
[2022-06-27] MEDS ORDERED: DEXTROSE 50% 50 ML SYR IVP PRN (13:45)
--- NOTE | 2022-06-27 15:00 | NUR ---
Patient will be admitted to care of Dr. Alanis. Admited to ICU. Will go to room 2. Belongings list completed. Report to Pamela ARMENTA.
--- NOTE | 2022-06-27 15:05 | NUR ---
Admission to ICU Received report from DEFENSE TRAVEL ADMINISTRATOR. Pt drowsy/lethargic, arousable, selective answering. AOx2/3 to person, event/situation. Pt states no pain but had small bout of nausea/dry heaving. Pt arrive with cardizem drip 15 mg/hr and sodium phosphate rider infusing to two IV sites, intact, patent. Pt is somewhat uncooperative with care but needs frequent reorientation and guidance. Requested urine from pt, but pt is unable to produce urine at this time.
--- NOTE | 2022-06-27 15:52 | NUR ---
DR. THIBODEAUX RETURNED PAGE. PT CLEARED FOR MILDLINE INSERTION.
[2022-06-27] MEDS: MORPHINE SULFATE 2 MG/ML SYR IVP PRN ×2 (15:53→20:04)
--- NOTE | 2022-06-27 16:00 | NUR ---
Informed patient's Iwona Wesley regarding patient's admission to ICU. Updated with current events/treatments. Questions answered.
--- NOTE | 2022-06-27 16:00 | NUR ---
Neff catheter 16Fr inserted using sterile technique. Pt was also offered PRN pain medicine for procedure. No urine output noted post insertion to collect for drug screen.
[2022-06-27] MEDS ORDERED: DILTIAZEM 125 MG in DEXTROSE 5% 100 ML IV SCH (16:15)
[2022-06-27] MEDS: BLOOD GLUCOSE MONITORING 1 DEV DEV FS SCH ×2 (16:30→21:00)
--- NOTE | 2022-06-27 17:24 | NUR ---
PICC line RN at bedside inserting midline per MD order.
[2022-06-27] MEDS: INSULIN LISPRO SLIDING SCALE 100 UNITS/ML VIAL SUBQ PRN ×2 (17:42→22:31)
[2022-06-27] MEDS: AMIODARONE 200 MG TAB PO SCH ×2 (17:43→22:16)
[2022-06-27] MEDS: DILTIAZEM 60 MG TAB PO SCH ×2 (17:43→22:16)
--- NOTE | 2022-06-27 18:00 | NUR ---
Pt complaining of penile pain, noted blood from benson catheter insertion. Flushed catheter, removed, controlling bleeding. Pt informed regarding need for urine. Pt also denying food tray despite encouragement and education.
--- NOTE | 2022-06-27 19:18 | NUR ---
Endorsed plan of care to RN
[2022-06-27] MEDS ORDERED: DILTIAZEM 125 MG/25 ML VIAL IV ONE (19:53)
[2022-06-27] MEDS ORDERED: METOPROLOL 25 MG TAB PO SCH (21:00)
[2022-06-27] MEDS: LORazepam 2 MG/ML VIAL IVP PRN (22:44)
[2022-06-28] VITALS (23 sets, daily range): BP systolic 109–139; BP diastolic 42–86
[2022-06-28] MEDS: LORazepam 2 MG/ML VIAL IVP PRN (02:58)
[2022-06-28] MEDS: DILTIAZEM 60 MG TAB PO SCH ×2 (05:03→12:04)
[2022-06-28] MEDS: MORPHINE SULFATE 2 MG/ML SYR IVP PRN ×3 (05:34→15:05)
[2022-06-28 05:49] LABS: BASOPHILS % (AUTO) 0.5 % (0.0-2.0); EOSINOPHILS % (AUTO) 0.1 % (0.0-4.0); HEMOGLOBIN 10.6 g/dL (12.0-18.0); LYMPHOCYTES # (AUTO) 0.7 K/uL (2.0-11.5); LYMPHOCYTES % (AUTO) 7.1 % (20.5-51.1); MEAN CORPUSCULAR HEMOGLOBIN 31 pg (27-31); MEAN CORPUSCULAR HGB CONC 35 g/dL (33-37); MEAN CORPUSCULAR VOLUME 87.9 fL (80-94); MONOCYTES # (AUTO) 0.8 K/uL (0.8-1.0); NEUTROPHILS # (AUTO) 8.6 K/uL (1.8-7.7); NEUTROPHILS % (AUTO) 84.3 % (42.2-75.2); PLATELET COUNT (AUTO) 92 K/uL (140-450); RED BLOOD CELL COUNT(AUTO) 3.41 MIL/uL (4.20-6.10); RED CELL DISTRIBUTION WIDTH 17.8 % (11.6-13.7); WHITE BLOOD COUNT (AUTO) 10.2 K/uL (4.8-10.8)
[2022-06-28] MEDS: INSULIN LISPRO SLIDING SCALE 100 UNITS/ML VIAL SUBQ PRN ×4 (06:14→20:56)
[2022-06-28] MEDS: BLOOD GLUCOSE MONITORING 1 DEV DEV FS SCH ×4 (06:14→21:01)
[2022-06-28 06:15] LABS: ANION GAP 17.8 (8-16); CARBON DIOXIDE 23.5 mmol/L (21-32); CREATININE 3.7 mg/dL (0.6-1.3); POTASSIUM 4.3 mmol/L (3.5-5.1)
[2022-06-28] MEDS ORDERED: DILTIAZEM 125 MG/25 ML VIAL IV ONE (07:10)
--- NOTE | 2022-06-28 07:15 | NUR ---
RECEIVED REPORT FROM ELECTRIC DISTRIBUTION ENGINEER ZEN. PT IS SLEEP. ON ROOM. ST ON MONITOR. 2G SODIUM DIET. MIDLINE TO RICARDA, INFUSING DILTAZEM @10 MG/H. GENERALIZED WEAKNESS, BEDREST. CALL LIGHT WITHIN REACH, SAFETY PRECAUTION IN PLACE, WILL CONTINUE TO MONITOR. Addendum: 06/28/22 at 0959 by Pineda Sunshine RN LT HAND 18G SALINE LOCK, RT HAND 22G, SALINE LOCK.
[2022-06-28] MEDS: AMIODARONE 200 MG TAB PO SCH ×2 (08:32→20:41)
[2022-06-28] MEDS ORDERED: THIAMINE 100 MG TAB PO SCH (09:00)
[2022-06-28] MEDS ORDERED: FOLIC ACID 1 MG TAB PO SCH (09:00)
--- NOTE | 2022-06-28 09:06 | NUR ---
PATIENT HAS BEEN SCREENED AND CATEGORIZED MODERATE NUTRITION RISK. PATIENT WILL BE SEEN WITHIN 3-5 DAYS OF ADMISSION. 06/27/22-07/02/22 REVIEWED BY JAKE LORA RD
--- NOTE | 2022-06-28 11:15 | NUR ---
DR. WYATT ROUNDING AT BEDSIDE. UPDATED PATIENT INFORMATION. NEW ORDERED RECEIVED.
[2022-06-28] MEDS ORDERED: LORazepam 1 MG TAB PO PRN (11:20)
[2022-06-28 11:25] LABS: APPEARANCE,URINE CLEAR (CLEAR); BILIRUBIN,URINE 2+ (NEGATIVE); BLOOD, URINE 3+ (NEGATIVE); LEUKOCYTE ESTERASE ,URINE NEGATIVE (NEGATIVE); NITRITE, URINE NEGATIVE (NEGATIVE); UGLUCOSE NEGATIVE (NEGATIVE)
[2022-06-28 11:26] LABS: COLOR,URINE ORANGE (YELLOW)
--- NOTE | 2022-06-28 11:33 | NUR ---
DC PLANNING A 51 YEAR OLD MALE PATIENT ADMITTED FOR PAROXYSMAL A. FIB/FLUTTER WITH RVR ,ALCOHOL INTOXICATION,ALCOHOL, LIVER CIRRHOSIS ,HTN,DM AND HX OF STROKE,ON AMIODARONE AND CARDIZEM DRIP BEING TAPERED DOWN .CARDIZEM PO STARTED. JULIETA FROM [facility] ADVISED THAT PATIENT IS STABLE FOR TRANSFER .CLINICALS FAXED.PATIENT REFUSED TRANSFER TO [facility].JULIETA TO DISCUSS WITH PATIENT THE NEED FOR TRANSFER TO [facility].CM TO FOLLOW. Addendum: 06/28/22 at 1219 by ELSIE NEVAREZ TALKED TO THE PATIENT AND EXPLAINED THE NEED FOR TRANSFER TO [facility].PATIENT AGREED.JULIETA FROM [facility] TO ARRANGE FOR AMBULANCE. PATEINT REQUESTING [facility] AND REQUEST RELAYED TO [facility] UR/CM
[2022-06-28 11:47] LABS: RBC,URINE 20-50 /HPF (0-5); WBC,URINE 0-5 /HPF (0-5)
--- NOTE | 2022-06-28 11:50 | NUR ---
DC PLANNING ATTEMPTED TO MEET PT AT BEDSIDE TO COMPLETE ASSESSMENT, HOWEVER, PT REPORTS BEING "TOO DROWSY" TO PARTICIPATE IN ASSESSMENT. SW REQUESTED PERMISSION TO CALL HIS TO GATHER COLLATERAL INFO, PT REFUSED FOR SW TO CALL . PT REQUESTING SW COME BACK " TOMORROW". PT CURRENTLY HAS A TRANSFER TO [facility] PENDING, CM WORKING ON TRANSFER.
--- NOTE | 2022-06-28 13:15 | NUR ---
DR. GRIER ROUNDING AT BEDSIDE. UPDATED PATIENT INFORMATION. NEW ORDER RECEIVED.
[2022-06-28] MEDS ORDERED: DIGOXIN 0.25 MG/ML AMP IV SCH ×2 (13:27→19:00)
--- NOTE | 2022-06-28 14:30 | NUR ---
DR. ALONSO ROUNDING AT BEDSIDE. UPDATED PATIENT INFORMATION. NEW ORDER RECEIVED
--- NOTE | 2022-06-28 16:21 | NUR ---
SEEN AND EXAMINED BY DR HUNTER. UPDATED PT INFORMATION.
--- NOTE | 2022-06-28 18:05 | NUR ---
RECEIVED PHONE CALL FROM [facility] ALEJANDRO, CASE MANAGEMENT, PT WILL BE TRANSFERRED TO [facility] ICU RM 226. PHONE# FOR REPORT, . CONTROL ROOM AGENT TIME 2099. ACCEPTING DR IS DR COLES. LEVEL OF TRANSPORTATION CCTRN. MED DIRECTION LINE, ALEJANDRO [phone] FOR ANY QUESTIONS BEFORE 2099. [facility] WILL CALL AT 2000 FOR UPDATED VS.
--- NOTE | 2022-06-28 18:21 | NUR ---
CALLED [facility] ICU [phone], SBAR GIVEN TO PRINCESS. ALL QUESTIONS ANSWERED. COMMUNITY ACTION WORKER TIME SCHEDULED AT 2100.
--- NOTE | 2022-06-28 19:26 | NUR ---
ENDORSED TO GRANTS SPECIALIST PHAM ARMENTA FOR CONTINUITY OF CARE.
--- NOTE | 2022-06-28 19:40 | NUR ---
RECEIVED REPORT FROM DAY SHIFT RN ANANT THAT PT. WILL BE TRANSFERRING TO [facility] [place] AND WILL BE PICKED UP BY [facility] AT 2100. PT. WILL BE GOING TO ICU 226. PT. AWAKE, ALERT AND ABLE TO EXPRESS HIS NEEDS. BILATERAL LUNGS CLEAR. ON ROOM AIR WITH O2 SAT 100%. PT. WAITING COMFORTABLY IN BED HE KNOWS THAT HE WILL BE TRANSFERRING TONIGHT. IV TO RIGHT HAND 22G AND LEFT HAND 22G CAPPED AND FLUSHED, WITH NO S/S OF INFILTRATION. BOTH EYES CLEAR, REACTIVE TO LIGHT AND ACCOMODATION. ABDOMEN SOFT, NON TENDER AND ACTIVE BOWEL SOUNDS. PT. ASKED FOR URINAL AND URINATED WITH NO DIFFICULTY. PT. WITH MILD MUSCLE WEAKNESS. PROVIDED SAFE AND QUIET ENVIRONMENT. NO S/S OF RESPIRATORY DISTRESS. NO S/S OF PAIN. WILL CONT. TO MONITOR.
[2022-06-28 20:03] LABS: CREATININE,URINE RANDOM 175 mg/dL (30-125)
[2022-06-28 20:04] LABS: URINE SODIUM, RANDOM 9 mmol/l (40-220)
[2022-06-28] MEDS ORDERED: ALBUTEROL SULFATE/IPRATROPIU 3 ML SOL IH PRN (20:30)
--- NOTE | 2022-06-28 20:32 | NUR ---
MANAGER ANALYSIS ALEJANDRO FROM [facility] CALLED AND ASKED FOR LATEST V/S. REPORTED THAT BP 119/56, HR 95, R 18, O2 SAT 100 ROOM AIR AND TEMP.98.6. NO FURTHER QUESTION ASKED.
[2022-06-28] MEDS ORDERED: DILTIAZEM 60 MG TAB PO SCH (21:00)
[2022-06-28] MEDS ORDERED: ALBUMIN HUMAN 25% 50 ML IV SCH (21:00)
--- NOTE | 2022-06-28 21:42 | NUR ---
PT. PICKED UP BY [facility] AT 2140. REPORT GIVEN TO [facility] AND PROVIDED TRANSFER PACKET. PT. WIDE AWAKE, ALERT, ORIENTED, COOPERATIVE DURING TRANSFER.
--- NOTE | 2022-06-28 22:17 | NUR ---
CALLED PT. ERROL HUMMEL AND NOTIFIED HER WITH HER 'S (PT.) TRANSFERRED TO [facility] AT 2141. PROVIDED HER WITH ROOM NUMBER IN [facility] ICU 226. PT. VERY THANKFUL FOR THE CARE THAT NAILA PROVIDED TO HER . NO MORE FURTHER QUESTIONS ASKED.
[2022-06-29] MEDS ORDERED: DIGOXIN 0.25 MG/ML AMP IV SCH (02:00)
== END 2022-06-28 21:41 | disposition short-term general hospital (02) | DRG 917 ==
LOC: MED 09:27 → MTU 13:45 → MIC 14:43
PROVIDERS: ADMIT Family Medicine; ATTEND Family Medicine
DX: T51.91XA Toxic effect of unspecified alcohol, accidental (unintentional), initial encounter (principal); G92.8 Other toxic encephalopathy; N17.0 Acute kidney failure with tubular necrosis; E87.0 Hyperosmolality and hypernatremia; E44.1 Mild protein-calorie malnutrition; I42.6 Alcoholic cardiomyopathy; E66.2 Morbid (severe) obesity with alveolar hypoventilation; K70.30 Alcoholic cirrhosis of liver without ascites; D63.8 Anemia in other chronic diseases classified elsewhere; D69.6 Thrombocytopenia, unspecified; I48.0 Paroxysmal atrial fibrillation; F10.129 Alcohol abuse with intoxication, unspecified; Y90.9 Presence of alcohol in blood, level not specified; I12.9 Hypertensive chronic kidney disease with stage 1 through stage 4 chronic kidney disease, or unspecified chronic kidney disease; E11.22 Type 2 diabetes mellitus with diabetic chronic kidney disease; N18.9 Chronic kidney disease, unspecified; Z20.822 Contact with and (suspected) exposure to COVID-19; Z79.01 Long term (current) use of anticoagulants; Y92.89 Other specified places as the place of occurrence of the external cause; Z86.73 Personal history of transient ischemic attack (TIA), and cerebral infarction without residual deficits; Z68.37 Body mass index [BMI] 37.0-37.9, adult
CPT/HCPCS: 36415; 71045; 76770; 80048; 80053; 81001; 82550; 82553; 82570; 82948; 83735; 84100; 84300; 84484; 85025; 87081; 93005; G0482; J1160; J1815; J2060; J2270; J2405; J3490; J7030; J7060; P9046; Q0092